=== PATIENT | male | born 1955 | race Caucasian/White ===

== ENCOUNTER 2017-12-26 07:25 | Observation (INO) | payer OTHER ==
[~2017-12-26] VITALS: Ht 188 cm; Wt 94.3 kg
[2017-12-26 07:28] VITALS: BP 161/97
[2017-12-26 08:21] LABS: APTT 26.8 Seconds (25.0-31.3); INR 1.1; PROTIME 10.4 Seconds (9.20-11.50)
[2017-12-26 08:23] LABS: ABSOLUTE BASOPHILS 0.1 thou/uL (0.0-0.2); ABSOLUTE EOSINOPHILS 0.5 thou/uL (0.0-0.7); ABSOLUTE NEUTROPHILS 6.3 thou/uL (1.6-8.1); BASOPHILS 0.6 %; EOSINOPHILS 5.2 %; HEMATOCRIT 43.7 % (42.0-52.0); LYMPHOCYTES 19.9 %; MCH 30.3 pg (26.0-34.0); MCHC 34.2 g/dL (28.0-37.0); MCV 88.7 fL (80.0-100.0); MONOCYTES 10.5 %; MPV 8.4 fl. (7.2-11.1); NUCLEATED RBCS 0 /100WBC; PLATELET COUNT* 274 thou/uL (150-400); POLYS 63.8 %; RBC 4.93 mil/uL (4.50-6.00); RDW-CV 14.6 % (10.5-14.5); WBC 9.8 thou/uL (4.0-11.0)
[2017-12-26 08:31] LABS: ANION GAP 9 mmol/L (7-16); BUN 17 mg/dL (7-18); CALCIUM 8.6 mg/dL (8.5-10.1); CHLORIDE 103 mmol/L (98-107); CO2 27 mmol/L (21-32); CREATININE 1.1 mg/dL (0.6-1.3); GLUCOSE 132 mg/dL (70-99); POTASSIUM 3.9 mmol/L (3.5-5.1); SODIUM 139 mmol/L (136-145)
[2017-12-26 08:38] LABS: ALBUMIN 3.7 g/dL (3.4-5.0); ALKALINE PHOSPHATASE 75 U/L (46-116); LIPASE 94 U/L (73-393); SGOT 29 U/L (15-37); SGPT 46 U/L (30-65); TOTAL BILIRUBIN 0.9 mg/dL (<0.1-1.0); TOTAL PROTEIN 7.5 g/dL (6.4-8.2); TROPONIN-I LEVEL <0.06 ng/mL (<0.06)
--- NOTE | 2017-12-26 10:10 | EKG ---
[place] [address] ELECTROCARDIOGRAM REPORT Name: JOSELIN CHANDLER Room: [address]R.#: [id number] Admission: 12/26/17 Attend Phys: Brendan Mccarthy MD Discharge: Date of : 53 Report #: [id number] THIS REPORT FOR: //name// [facility] ED Test Date: 2017-12-26 Test Time: 07:31:23 Pat Name: JOSELIN CHANDLER Department: Room: [facility] Gender: Dock Supervisor: Manuelito LUCAS : 1955 Requested By: Leonarda Gale Order Number: [id number] MD: Ramon Lu Measurements Intervals [place] Rate: 76 P: 48 IN: 142 QRS: 18 QRSD: 132 T: 53 QT: 395 QTc: 445 Interpretive Statements Sinus rhythm Probable left atrial enlargement No previous ECG available for comparison Electronically Signed On 12-26-2017 10:10:00 CDT by Ramon Lu [email or web address] <ELECTRONICALLY SIGNED> By: Ramon Lu MD, [facility] 12/26/17 1010 731 0 Ramon Lu MD, FACC /EPI
[2017-12-26 11:04] VITALS: BP 101/47
[2017-12-26 11:30] VITALS: BP 126/80
--- NOTE | 2017-12-26 17:26 | EXE ---
[place] [address] STRESS ECHOCARDIOGRAM Name: JOSELIN CHANDLER [address] [id number] Admission: 12/26/17 Attend Phys: Brendan Mccarthy, Discharge: Date of : 53 Date of Service: 12/26/17 1726 Report #: [id number] THIS REPORT FOR: //name// APPROVED REPORT Study performed: 12/26/2017 16:34:43 Exam: Stress Echocardiogram Indication: Chest pain Patient Location: In-Patient Stress Nurse: Marlyn Lockett RN Room #: ER Supervising Physician: Ramon Lu MD Ht: 6 ft 1 in HR: 80 bpm BP: 159/98 mmHg Medical History Cardiac Risk Factors: HTN, Hyperlipidemia, Tobacco History (Former) Procedure The patient underwent an Exercise Stress Test using the Ramy Protocol. Blood pressure, heart rate, and EKG were monitored. An Echocardiogram was performed by trailer technician in four stages in quad fashion. At peak stress, four selected images were obtained and placed side by side with resting images for comparison. Stress Test Details Stress Test: Exercise stress testing was performed using a Ramy protocol. HR Resting HR: 80 bpm Max Heart Rate (APMHR): 157 bpm Max HR Achieved: 154 bpm Target HR (85% APMHR): 133 bpm % of APMHR: 98 Recovery HR: 108 bpm HR response to stress: Normal HR response to stress BP Resting BP: 159/98 mmHg Max BP: 211/85 mmHg Recovery BP: 138/86 mmHg ECG Resting ECG: [place] [address] STRESS ECHOCARDIOGRAM Name: JOSELIN CHANDLER Room: [address]#: [id number] Admission: 12/26/17 Attend Phys: Brendan Mccarthy, Discharge: Date of : 53 Date of Service: 12/26/17 1726 Report #: [id number] Stress ECG: Sinus Rhythm, nonspecific ST-T abnormalities ST Change: Upsloping ST depression Maximum ST Deviation: 0.5 mm Recovery ECG: Sinus Rhythm, nonspecific ST-T abnormalities Recovery ST Change: Upsloping ST depression Recovery ST Deviation: 0.5 mm Clinical Reason for Termination: Completed protocol, Dyspnea Exercise duration: 6 min 30 sec Highest Stage Achieved: Stage 2: 2.5 mph at 12% grade. Exercise capacity: 7.78 METs Pre-Stress Echo The resting Echocardiogram showed normal left ventricular contractility with an estimated Ejection Fraction of about 55-60%. Post-Stress Echo The stress Echocardiogram showed normal left ventricular contractility with an estimated Ejection Fraction of about >70%. Conclusion Clinical Response: Non-ischemic Exercise Capacity: Average Stress ECG Response: Equivocal Stress Echo Images: Non-ischemic low risk stress echo for future cardiac events Other Information Study Quality: Good <Conclusion> low risk stress echo for future cardiac events <ELECTRONICALLY SIGNED> By: Ramon Lu MD, [facility] 12/26/171725 25 25 Ramon Lu MD, FACC /INF
[2017-12-26 17:35] VITALS: BP 126/80
--- NOTE | 2017-12-31 12:20 | CON ---
[address] [address] CONSULTATION Name: JOSELIN CHANDLER Room: [address] [place]#: [id number] Admission: 12/26/17 Attend Phys: Brendan Mccarthy MD Discharge: 12/26/17 Date of : 53 Report #: [id number] THIS REPORT FOR: //name// CC: Brendan Mccarthy FAM unknown [facility] [address] DATE OF SERVICE: 12/26/2017 CARDIOLOGY CONSULTATION HISTORY OF PRESENT ILLNESS: The patient is a 62-year-old white male who I was asked to see in the Emergency Room today after he complained of chest pain. The patient has no previous history of heart disease. He is not very active because of chronic back pain. He apparently had a stress test years ago. He was doing well until last night he was lying in bed when he felt an epigastric discomfort. He denied it radiating to his arms or jaw. There was no associated diaphoresis, nausea or shortness of breath. The epigastric discomfort resolved after he stood up. However, he lied down, again felt epigastric discomfort during the night. He denied any belch with the episode. He has had no recent blood in stool. He did not try any antacids. He then awakened today and noticed an ache in the left side of his chest. It lasted about a minute and then resolved. It would come and go. Again, no associated shortness of breath. Denied any rash or trauma to his chest. Because of the symptoms, he finally came to the Emergency Room and was admitted. 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 He has no history of hypertension or diabetes. Does have a history of hyperlipidemia. He was on Lipitor in the past, but ran out of it. FAMILY HISTORY: Negative for heart disease. SOCIAL HISTORY: He is . He and his both work for [employer]. 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 He quit smoking 3 years ago. He used to smoke 2 packs of cigarettes a day. He has about 1 beer a month. He lives in [place]. REVIEW OF SYSTEMS: No history of stroke, asthma, peptic ulcer disease, liver disease, kidney disease. He had a skin cancer removed in the past. He has chronic back pain. He wears glasses. PHYSICAL EXAMINATION: GENERAL: Revealed a middle-aged male who appeared in no distress. VITAL SIGNS: He had a blood pressure of 130/80, pulse is 90, [place] [address] CONSULTATION Name: JOSELIN CHANDLER Room: [address] Isabel#: [id number] Admission: 12/26/17 Attend Phys: Brendan Mccarthy MD Discharge: 12/26/17 Date of : 53 Report #: [id number] HEENT: He was anicteric. Conjunctivae pink. Mucous membranes moist. NECK: Neck veins nondistended. No carotid bruits. Neck supple. CHEST: Clear to auscultation. CARDIOVASCULAR: Regular rate without murmur. ABDOMEN: Soft, nontender, no masses palpable. EXTREMITIES: Had no edema. Dorsalis pedis pulse 3+ bilaterally. SKIN: Warm and dry. NEUROLOGIC: Nonfocal. LYMPHATIC: No adenopathy. MUSCULOSKELETAL: No joint effusion. His ECG showed a sinus rhythm with no significant ST or T-wave change. His workup in the Emergency Room today, he had a chest x-ray that showed normal heart size, clear lung rothman. LABORATORY DATA: Sodium 139, creatinine 1.1. Liver function studies were normal. Troponin 0.06. White blood cell count 9.8, hemoglobin 15. IMPRESSION AND RECOMMENDATIONS: 1. Chest pain. Atypical for angina. The patient does have risk factors. Recommend stress testing. 2. Previous tobacco abuse. 3. History of hyperlipidemia. The patient is no longer on a statin drug. <ELECTRONICALLY SIGNED> By: Ramon Lu MD, FACC 12/31/17 1220 1341 2200Dachristiano Lu MD, FACC /nt
== END 2017-12-26 18:02 | disposition home or self-care (01) ==
LOC: M.ERS 07:25 → M.TBA-ER 09:42 → M.2W 09:42
PROVIDERS: Personal Emergency Response Attendant; ADMIT Internal Medicine
DX: I20.9 Angina pectoris, unspecified (principal); K21.9 Gastro-esophageal reflux disease without esophagitis; I10 Essential (primary) hypertension; E78.5 Hyperlipidemia, unspecified; M54.9 Dorsalgia, unspecified; G89.29 Other chronic pain; Z87.891 Personal history of nicotine dependence